=== PATIENT | male | born 1975 | race African-American/Black ===

== ENCOUNTER 2016-06-15 01:15 | Inpatient (IN) | payer MEDICAID ==
[~2016-06-15] VITALS: Ht 188 cm; Wt 125.6 kg
[2016-06-15] MEDS ORDERED: ZOLPIDEM TARTRATE 10 MG TABLET PO PRN (02:45)
[2016-06-15] MEDS ORDERED: QUEtiapine FUMARATE 100 MG TABLET PO PRN (02:45)
[2016-06-15] MEDS ORDERED: LORazepam 2 MG TABLET PO PRN (02:45)
[2016-06-15 03:24] VITALS: BP 130/88
[2016-06-15] MEDS ORDERED: -PHARMACY VACCINE NOTE- MISC ONE ×2 (03:45)
[2016-06-15 08:00] VITALS: BP 126/82
[2016-06-15] MEDS: SERTRALINE HCL 50 MG TABLET PO SCH (10:30)
[2016-06-15] MEDS ORDERED: LOPERAMIDE HCL 2 MG CAPSULE PO PRN (18:45)
[2016-06-15] MEDS ORDERED: BACITRACIN 28.4 GM OINTMENT TP PRN (18:45)
[2016-06-15] MEDS ORDERED: ALBUTEROL SULFATE HFA 90 MCG/PUFF 8 GM INHALER IH PRN (18:45)
[2016-06-15] MEDS ORDERED: MAGNESIUM HYDROXIDE SUSPENSION 30 ML UDCUP PO PRN (18:45)
[2016-06-15] MEDS ORDERED: MAG HYDROX/AL HYDROX/SIMETH ES 30 ML SUSPENSION UDCUP PO PRN (18:45)
[2016-06-15] MEDS ORDERED: ONDANSETRON HCL 4 MG TABLET PO PRN (18:45)
[2016-06-15] MEDS ORDERED: CloNIDine HCL 0.1 MG TABLET PO PRN (18:45)
[2016-06-15] MEDS ORDERED: ACETAMINOPHEN 325 MG TABLET PO PRN (18:45)
[2016-06-15] MEDS ORDERED: PETROLATUM,WHITE 71 GM JELLY TP PRN (18:45)
[2016-06-15] MEDS ORDERED: IBUPROFEN 600 MG TABLET PO PRN (18:45)
[2016-06-15] MEDS ORDERED: BENZOCAINE/MENTHOL LOZENGE MM PRN (18:45)
[2016-06-15 20:59] VITALS: BP 113/78
[2016-06-16 06:36] VITALS: BP 107/62
[2016-06-16 08:11] LABS: BASOPHILS # (AUTO) 0.08 K/uL (0.00-0.20); BASOPHILS % (AUTO) 1.3 % (0.0-2.0); EOSINOPHILS # (AUTO) 0.24 K/uL (0.00-0.70); EOSINOPHILS % (AUTO) 4.09 % (1.0-6.0); HEMATOCRIT 39.4 % (41-53); HEMOGLOBIN 13.5 g/dL (13.5-17.5); LYMPHOCYTES # (AUTO) 2.8 K/uL (1.0-4.8); LYMPHOCYTES % (AUTO) 47.6 % (22.0-44.0); MEAN CORPUSCULAR HEMOGLOBIN 29.6 pg (26.0-34.0); MEAN CORPUSCULAR HGB CONC 34.3 G/dL (31.0-37.0); MEAN CORPUSCULAR VOLUME 86 fL (80-100); MONOCYTES # (AUTO) 0.4 K/uL (0.1-1.0); NEUTROPHILS # (AUTO) 2.4 K/uL (1.8-7.7); NEUTROPHILS % (AUTO) 40.9 % (40.0-70.0); PLATELET COUNT (AUTO) 318 K/uL (150-450); RED BLOOD CELL COUNT(AUTO) 4.56 MIL/uL (4.50-5.90); RED CELL DISTRIBUTION WIDTH 14.4 % (11.5-14.5); WHITE BLOOD COUNT (AUTO) 5.8 K/uL (4.5-11.0)
[2016-06-16 08:41] LABS: ALANINE AMINOTRANSFERASE 26 U/L (12-78); ALBUMIN 3.3 g/dL (3.4-5.0); ANION GAP 7 mmol/L (8-16); ASPARTATE AMINOTRANSFERASE 15 U/L (15-37); BILIRUBIN,TOTAL 0.5 mg/dL (0.1-1.0); CALCIUM, TOTAL 8.8 mg/dL (8.8-10.5); CARBON DIOXIDE 28 mmol/L (22-29); CHLORIDE 104 mmol/L (98-107); CREATININE 0.88 mg/dL (0.60-1.30); GLOMERULAR FILTR. RATE CALC > 60 mL/min (>60); POTASSIUM 4.1 mmol/L (3.5-5.1); SODIUM SERUM 139 mmol/L (136-145); THYROID STIMULATING HORMONE 0.55 uIU/mL (0.36-3.74); TOTAL PROTEIN, SERUM 6.2 g/dL (6.4-8.2); UREA NITROGEN, BLOOD 11 mg/dL (7-18)
[2016-06-16] MEDS: SERTRALINE HCL 50 MG TABLET PO SCH (09:43)
[2016-06-16 16:14] VITALS: BP 107/81
[2016-06-17 04:07] VITALS: BP 124/88
[2016-06-17 08:32] VITALS: BP 105/60
[2016-06-17] MEDS: SERTRALINE HCL 50 MG TABLET PO SCH (09:52)
[2016-06-17 16:03] VITALS: BP 117/73
[2016-06-18 00:35] VITALS: BP 111/61
[2016-06-18] MEDS ORDERED: SERT50TA12 PO (04:50)
[2016-06-18 08:00] VITALS: BP 116/76
[2016-06-18] MEDS: SERTRALINE HCL 50 MG TABLET PO SCH (08:42)
== END 2016-06-18 08:45 | disposition home or self-care (01) | DRG 754 ==
LOC: EDSTATUS 02:34 → B3A 02:48 → B2S 06-17 17:20
DX: F32.9 Major depressive disorder, single episode, unspecified (principal); R45.851 Suicidal ideations; E66.9 Obesity, unspecified; F12.90 Cannabis use, unspecified, uncomplicated; F17.200 Nicotine dependence, unspecified, uncomplicated; Z68.35 Body mass index [BMI] 35.0-35.9, adult; Z71.6 Tobacco abuse counseling; Z71.51 Drug abuse counseling and surveillance of drug abuser
CPT/HCPCS: 84443; 87081

== ENCOUNTER 2016-06-30 03:06 | Inpatient (IN) | payer MEDICAID ==
[~2016-06-30] VITALS: Ht 190.5 cm; Wt 134.4 kg
[~2016-06-30 03:06] MED LIST: SERT50TA12 PO
[2016-06-30 04:17] VITALS: BP 140/88
[2016-06-30] MEDS ORDERED: LORazepam 2 MG TABLET PO PRN (05:45)
[2016-06-30] MEDS ORDERED: HALOPERIDOL 5 MG TABLET PO PRN (05:45)
[2016-06-30] MEDS ORDERED: ZOLPIDEM TARTRATE 10 MG TABLET PO PRN (05:45)
[2016-06-30 08:08] VITALS: BP 106/66
[2016-06-30] MEDS ORDERED: MAG HYDROX/AL HYDROX/SIMETH ES 30 ML SUSPENSION UDCUP PO PRN (11:15)
[2016-06-30] MEDS ORDERED: IBUPROFEN 600 MG TABLET PO PRN (11:15)
[2016-06-30] MEDS ORDERED: CloNIDine HCL 0.1 MG TABLET PO PRN (11:15)
[2016-06-30] MEDS ORDERED: PETROLATUM,WHITE 71 GM JELLY TP PRN (11:15)
[2016-06-30] MEDS ORDERED: ACETAMINOPHEN 325 MG TABLET PO PRN (11:15)
[2016-06-30] MEDS ORDERED: GuaiFENesin/D-METHORPHAN/PHENYLEPH 5 ML LIQUID ORAL.SYG PO PRN (11:15)
[2016-06-30] MEDS ORDERED: ONDANSETRON HCL 4 MG TABLET PO PRN (11:15)
[2016-06-30] MEDS ORDERED: ALBUTEROL SULFATE HFA 90 MCG/PUFF 8 GM INHALER IH PRN (11:15)
[2016-06-30] MEDS ORDERED: MAGNESIUM HYDROXIDE SUSPENSION 30 ML UDCUP PO PRN (11:15)
[2016-06-30] MEDS ORDERED: BACITRACIN 28.4 GM OINTMENT TP PRN (11:15)
[2016-06-30] MEDS ORDERED: LOPERAMIDE HCL 2 MG CAPSULE PO PRN (11:15)
[2016-06-30] MEDS ORDERED: BENZOCAINE/MENTHOL LOZENGE [8 LOZENGES/PACKET] MM PRN (11:30)
[2016-06-30] MEDS: SERTRALINE HCL 50 MG TABLET PO SCH (13:01)
[2016-06-30 17:00] VITALS: BP 108/64
[2016-07-01 08:30] VITALS: BP 119/80
[2016-07-01] MEDS: SERTRALINE HCL 50 MG TABLET PO SCH (09:02)
== END 2016-07-01 12:30 | disposition home or self-care (01) | DRG 751 ==
LOC: 3EI 03:30
DX: F33.2 Major depressive disorder, recurrent severe without psychotic features (principal); R45.851 Suicidal ideations; F17.200 Nicotine dependence, unspecified, uncomplicated; J20.9 Acute bronchitis, unspecified; K59.00 Constipation, unspecified; R51 Headache; F12.10 Cannabis abuse, uncomplicated; F11.10 Opioid abuse, uncomplicated; E66.9 Obesity, unspecified; Z68.37 Body mass index [BMI] 37.0-37.9, adult; Z79.899 Other long term (current) drug therapy; Z71.51 Drug abuse counseling and surveillance of drug abuser; Z71.6 Tobacco abuse counseling